=== PATIENT | female | born 1955 | race Caucasian/White ===

== ENCOUNTER 2019-04-14 13:52 | Inpatient (IN) ==
[2019-04-14 14:47] LABS: LYMPHOCYTES # (AUTO) 0.6 X10^3/uL (1.3-2.9); MONOCYTES # (AUTO) 0.5 x10^3/uL (0.3-0.8); NEUTROPHILS % (AUTO) 88.5 % (42.0-75.0)
[2019-04-14 14:52] LABS: BASOPHILS % (AUTO) 0.3 % (0.2-1.0); EOSINOPHILS % (AUTO) 0.5 % (0.9-2.9); LYMPHOCYTES % (AUTO) 6.3 % (21.0-51.0); MEAN CORPUSCULAR HEMOGLOBIN 26.4 pg (27.0-34.0); MEAN CORPUSCULAR HGB CONC 31.5 g/dL (33.0-35.0); MEAN CORPUSCULAR VOLUME 83.8 fL (80.0-100.0); MONOCYTES % (AUTO) 4.4 % (0.0-13.0); NEUTROPHILS # (AUTO) 9.1 x10^3/uL (2.2-4.8); PLATELET COUNT 382 X10^3/uL (150.0-450.0); RED BLOOD COUNT 2.19 X10^6/uL (3.5-5.4); RED CELL DISTRIBUTION WIDTH 22.9 % (11.6-16.5); WHITE BLOOD COUNT 10.3 X10^3/uL (3.6-10.0)
[2019-04-14 14:55] LABS: HEMOGLOBIN 5.8 g/dL (12.0-16.0)
[2019-04-14 14:56] LABS: HEMATOCRIT 18.4 % (36.0-47.0)
[2019-04-14 14:58] LABS: PLATELET MORPHOLOGY COMMENT NORMAL (NORMAL)
[2019-04-14 15:02] LABS: ALBUMIN 2.9 g/dL (3.4-5.0); CALCIUM 8.5 mg/dL (8.5-10.1); CARBON DIOXIDE 30.4 mmol/L (21-32); COR CA(FOR HYPOALB) 9.4 mg/dL (8.5-10.1); CREATININE 1.72 mg/dL (0.55-1.02)
[2019-04-14 15:03] LABS: ANISOCYTOSIS 2+; HYPOCHROMASIA SLIGHT; POIKILOCYTOSIS SLIGHT
[2019-04-14 15:04] LABS: SCHISTOCYTES PRESENT
[2019-04-14] MEDS ORDERED: NS 500 ML IV 500 ML ONE (16:09)
--- NOTE | 2019-04-14 16:48 | VAS ---
Lower extremity doppler sonogram Indication: Bilateral leg pain Comparison: None available TECHNIQUE: Multiple waller scale and color flow Doppler images of the deep venous system were obtained of the right and left lower extremity. FINDINGS: The deep venous system of the right and left lower extremities were evaluated from the level of the common femoral vein through the popliteal vein. Normal color flow and augmentation can be observed. In addition, normal compression is seen throughout the deep venous system. There is subcutaneous edema noted within bilateral popliteal regions IMPRESSION: 1. Negative for bilateral lower extremity DVT. Reported By:
[2019-04-14] MEDS ORDERED: ULTRAM PO PRN (17:15)
[2019-04-14] MEDS: PROVENTIL NEB TX 0.083% 2.5MG/ 3ML NEB SCH (20:55)
[2019-04-14] MEDS ORDERED: COLACE CAP 100 MG PO SCH (21:00)
[2019-04-14] MEDS: COZAAR PO SCH (21:05)
[2019-04-14] MEDS: KLOR-CON PO SCH (21:05)
[2019-04-14] MEDS: PREDNISONE TAB 5 MG PO SCH (21:05)
[2019-04-14] MEDS: CHECK PATCH XX SCH (21:05)
[2019-04-14] MEDS: ELIQUIS PO SCH ×2 (21:23→21:24)
[2019-04-14] MEDS: NICOTINE PATCH TD SCH (21:25)
[2019-04-15] MEDS ORDERED: NS 250 ML IV 250 ML ONE (00:47)
[2019-04-15] MEDS: PROVENTIL NEB TX 0.083% 2.5MG/ 3ML NEB SCH ×3 (04:58→14:32)
[2019-04-15 06:41] LABS: BASOPHILS # (AUTO) 0.2 X10^3/uL (0.0-0.1); BASOPHILS % (AUTO) 1.3 % (0.2-1.0); EOSINOPHILS # (AUTO) 0.2 x10^3/uL (0.0-0.2); EOSINOPHILS % (AUTO) 1.8 % (0.9-2.9); HEMATOCRIT 26.3 % (36.0-47.0); LYMPHOCYTES # (AUTO) 1.3 X10^3/uL (1.3-2.9); MEAN CORPUSCULAR HEMOGLOBIN 27.6 pg (27.0-34.0); MEAN CORPUSCULAR HGB CONC 32.1 g/dL (33.0-35.0); MEAN CORPUSCULAR VOLUME 86.1 fL (80.0-100.0); MONOCYTES # (AUTO) 0.7 x10^3/uL (0.3-0.8); MONOCYTES % (AUTO) 6.4 % (0.0-13.0); NEUTROPHILS % (AUTO) 79.5 % (42.0-75.0); PLATELET COUNT 320 X10^3/uL (150.0-450.0); RED BLOOD COUNT 3.06 X10^6/uL (3.5-5.4); RED CELL DISTRIBUTION WIDTH 19.2 % (11.6-16.5); WHITE BLOOD COUNT 11.3 X10^3/uL (3.6-10.0)
[2019-04-15 06:55] LABS: HEMOGLOBIN 8.4 g/dL (12.0-16.0)
[2019-04-15 07:50] VITALS: BMI 31.4
[2019-04-15] MEDS ORDERED: LASIX PO SCH (09:00)
[2019-04-15] MEDS ORDERED: PHARMACY CONSULT - DOSE _____ XX SCH (09:00)
[2019-04-15] MEDS ORDERED: COLCRYS TAB 0.6 MG PO SCH (09:00)
[2019-04-15] MEDS ORDERED: ZYLOPRIM PO SCH (09:00)
[2019-04-15] MEDS: NICOTINE PATCH TD SCH (09:07)
[2019-04-15] MEDS: ELIQUIS PO SCH ×2 (09:08→09:32)
[2019-04-15] MEDS: PREDNISONE TAB 5 MG PO SCH (09:08)
[2019-04-15] MEDS: COZAAR PO SCH (09:08)
[2019-04-15] MEDS: CHECK PATCH XX SCH (09:09)
[2019-04-15] MEDS: KLOR-CON PO SCH (09:09)
[2019-04-15] MEDS ORDERED: DEXFERRUM or INFED 25 MG in NS 100 ML IV 100 ML IV NR (11:00)
[2019-04-15] MEDS ORDERED: DEXFERRUM or INFED 975 MG in NS 500 ML IV 500 ML IV NR (12:00)
[2019-04-15] MEDS ORDERED: MAGIC MOUTHWASH MT NR (15:51)
[2019-04-15 16:14] VITALS: BP 191/99
[2019-04-15] MEDS ORDERED: SYNTHROID 25 mcg TAB PO SCH (16:30)
== END 2019-04-15 16:55 | disposition home or self-care (01) | DRG 812 ==
LOC: MED/SURG 14:00
PROVIDERS: ADMIT Obstetrics & Gynecology Obstetrics; ATTEND Obstetrics & Gynecology Obstetrics
DX: D64.89 Other specified anemias; M79.604 Pain in right leg; D50.8 Other iron deficiency anemias; Z79.01 Long term (current) use of anticoagulants; M79.605 Pain in left leg
CPT/HCPCS: 36415; 36430; 80053; 82270; 82728; 85025; 86850; 86900; 86901; 86922; 93970; 94640; 94760; A4222; P9016; J1750; J7040; J7050; J7512; J7613